=== PATIENT | female | born 1990 | race Caucasian/White ===

== ENCOUNTER 2016-05-04 01:27 | Emergency (ER) | payer BC ==
[2016-05-04 01:32] VITALS: BP 125/80
[2016-05-04] MEDS ORDERED: Acetaminophen/HYDROcodone 325-5 MG Tab PO ONE ×3 (01:44→10:00)
[2016-05-04] MEDS ORDERED: Take Home: Acetaminophen/HYDROcodone 325-5 MG, 2 Tab Pack PO ONE (02:17)
--- NOTE | 2016-05-04 02:26 | EDM.PDOC ---
ED HPI Trauma - General Chief Complaint: Upper Extremity Injury/Pain Stated Complaint: elbow injury Time Seen by Provider: 05/04/16 01:35 Source: Reports: Patient History Limitations: Reports: No limitations - History of Present Illness Symptom Onset Date: 05/04/16 Occurred When: just prior to arrival Occurred Where: home Method of Injury: fall Severity: severe Pain/Injury Location: Reports: upper extremity, left Allergies/ADRs: Allergies Sulfa (Sulfonamide Antibiotics) Allergy (Verified 05/04/16 01:29) Rash Home Medications: Ambulatory Orders . [No Known Home Meds] 05/04/16 [Confirmed 05/04/16] Past Medical History - Past Surgical History HEENT Surgical History: Reports: Tonsillectomy GI Surgical History: Reports: Cholecystectomy Social & Family History - Tobacco Use Smoking Status *Q: Never Smoker - Alcohol Use Days Per Week of Alcohol Use: 1 Number of Drinks Per Day: 4 Total Drinks Per Week: 4 - Recreational Drug Use Recreational Drug Use: No Review of Systems - Review of Systems Review Of Systems: See Below Constitutional: Reports: no symptoms Eyes: Reports: no symptoms Ears: Reports: no symptoms Nose: Reports: no symptoms Mouth/Throat: Reports: no symptoms Respiratory: Reports: No Symptoms Cardiovascular: Reports: no symptoms GI/Abdominal: Reports: No symptoms Genitourinary: Reports: no symptoms Musculoskeletal: Reports: arm pain Skin: Reports: bruising Neurological: Reports: No Symptoms Psychiatric: Reports: anxiety Trauma Exam - Physical Exam Exam: See Below (Swellng noted of the left elbow with significant decrease in ROM) Exam Limited By: No limitations General Appearance: Reports: alert, mild distress Head: Reports: atraumatic, normocephalic Ears: Reports: normal external exam Nose: Reports: normal inspection Throat/Mouth: Reports: Normal inspection Neck: Reports: non-tender, full range of motion Respiratory Exam: Reports: no respiratory distress Cardiovascular: Reports: normal peripheral pulses GI/Abdominal: Reports: soft, non tender Extremities: Reports: pain with movement, tenderness, other Skin: Reports: Normal color - Neeta Coma Score Best Eye Response (Neeta): (4) open spontaneously Best Verbal Response ([place]): (5) oriented Best Motor Response (Neeta): (6) obeys commands Course - Vital Signs Last Recorded V/S: Last Vital Signs Temp 37.2 C 05/04/16 01:29 Pulse 90 05/04/16 01:29 Resp 18 05/04/16 01:29 BP 125/80 05/04/16 01:29 Pulse Ox 97 05/04/16 01:29 - Orders/Labs/Meds Orders: Active Orders 24 hr Category Date Time Status Elbow Min 3V Lt [CR] Stat Exams 05/04/16 01:29 Ordered Meds: Medications Discontinued Medications Generic Name Dose Route Start Last Admin Trade Name Walter PRN Reason Stop Dose Admin Acetaminophen/Hydrocodone Bitart 1 tab 05/04/16 01:44 05/04/16 01:48 Lawrence 325-5 Mg PO 05/04/16 01:45 1 tab ONETIME ONE Administration Acetaminophen/Hydrocodone Bitart 2 packet 05/04/16 02:17 Take Home: Acetaminophen/Hydrocod, 2 Tab Pack PO 05/04/16 02:18 ONETIME ONE Departure - Departure Time of Disposition: 02:24 Disposition: Home, Self-Care 01 Clinical Impression: Elbow fracture, left Instructions: Cast or Splint Care, [id number] Forms: ED Department Discharge Additional Instructions: Follow up with your primary care doctor Friday for referral to an orthopedic surgeon. Take Lawrence 7.5 mg by mouth q 4-6 hours prn pain - My Orders Last 24 Hours: My Active Orders 05/04/16 01:29 Elbow Min 3V Lt [CR] Stat - Assessment/Plan Last 24 Hours: My Active Orders 05/04/16 01:29 Elbow Min 3V Lt [CR] Stat
== END 2016-05-04 02:50 | disposition home or self-care (01) ==
LOC: CC.ED 01:27
DX: S42.402A Unspecified fracture of lower end of left humerus, initial encounter for closed fracture (principal); Z88.2 Allergy status to sulfonamides; Z98.890 Other specified postprocedural states; Z90.49 Acquired absence of other specified parts of digestive tract; W19.XXXA Unspecified fall, initial encounter; Y92.009 Unspecified place in unspecified non-institutional (private) residence as the place of occurrence of the external cause
CPT/HCPCS: 73080; 99283; A9270; 29075